=== PATIENT | female | born 2000 | race Two or more races ===

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

== ENCOUNTER 2019-02-17 04:08 | Emergency (ER) | payer OTHER ==
[2019-02-17 04:16] VITALS: BP 126/70
[2019-02-17] MEDS ORDERED: LIDOCAINE 1% INJ-PF (10 MG/ML) 30 ML SDV INJ ONE (04:49)
[2019-02-17] MEDS ORDERED: PROMETHAZINE HCL 25 MG TABLET PO ONE (04:49)
[2019-02-17] MEDS ORDERED: OXYCODONE-ACETAMINOPHEN 5-325 MG TABLET PO ONE (04:49)
--- NOTE | 2019-02-17 04:50 | ER Document Report ---
ED Skin Rash/Insect Bite/Abscs - General Chief Complaint: Rectal Abscess Stated Complaint: POSSIBLE ABSCESS Time Seen by Provider: 02/17/19 04:43 Notes: Patient is a 18-year-old female that comes to the emergency department for chief complaint of a swollen, red, tender area in the top of the left buttock area that appeared approximately 4 days ago and has worsened. She denies ever having this before. She denies any history of abscesses. She denies any fever/chills, nausea/vomiting. She denies any daily medications or past medical history. She is 1 month but she is not breast-feeding. TRAVEL OUTSIDE OF THE [place] IN LAST 30 DAYS: No - Related Data Allergies/Adverse Reactions: No Known Allergies Allergy (Verified 07/07/18 03:12) Home Medications: ibuprofen prn pain Past Medical History - General Information source: Patient - Social History Smoking Status: Never Smoker Frequency of alcohol use: None Drug Abuse: None Lives with: Family Family History: Reviewed & Not Pertinent Patient has suicidal ideation: No Patient has homicidal ideation: No Pulmonary Medical History: Reports: Hx Asthma Renal/ Medical History: Denies: Hx Peritoneal Dialysis Psychiatric Medical History: Reports: Hx Anxiety - Panic attacks - Immunizations Immunizations up to date: Yes Hx Diphtheria, Pertussis, Tetanus Vaccination: Yes Review of Systems - Review of Systems Constitutional: No symptoms reported EENT: No symptoms reported Cardiovascular: No symptoms reported Respiratory: No symptoms reported Gastrointestinal: No symptoms reported Genitourinary: No symptoms reported Female Genitourinary: No symptoms reported Musculoskeletal: No symptoms reported Skin: See HPI Hematologic/Lymphatic: No symptoms reported Neurological/Psychological: No symptoms reported Physical Exam - Vital signs Vitals: Temp Pulse Resp BP Pulse Ox 98.9 F 98 H 16 126/70 H 100 02/17/19 04:14 02/17/19 04:14 02/17/19 04:14 02/17/19 04:14 02/17/19 04:14 - Notes Notes: GENERAL: Alert, interacts well. No acute distress. HEAD: Normocephalic, atraumatic. EYES: Pupils equal, round, and reactive to light. Extraocular movements intact. ENT: Oral mucosa moist, tongue midline. Oropharynx unremarkable. Airway patent. LUNGS: Clear to auscultation bilaterally, no wheezes, rales, or rhonchi. No respiratory distress. HEART: Regular rate and rhythm. No murmur ABDOMEN: Soft, non-tender. Non-distended. EXTREMITIES: Moves all 4 extremities spontaneously. No edema, normal radial and dorsalis pedis pulses bilaterally. No cyanosis. BACK: no cervical, thoracic, lumbar midline tenderness. No saddle anesthesia, normal distal neurovascular exam. Moves all extremities in full range of motion. NEUROLOGICAL: Alert and oriented x3. Normal speech. Cranial nerves II through XII grossly intact. PSYCH: Normal affect, normal mood. SKIN: There is an indurated, fluctuant, oval-shaped area over the left upper buttock fold in the pilonidal area with some mild erythema over this area but no surrounding cellulitis. Area is very tender. Skin exam is completely unremarkable otherwise, no evidence of perianal abscess. Exam performed with Kiara CANDELARIA at bedside. Course - Re-evaluation Re-evalutation: Patient with obvious pilonidal cyst abscess. This was clean, drain, very large amount of purulent drainage was expressed, this was deep so after discussion with patient decision was made to pack it. Given specific instructions, antibiotics, return precautions which were discussed in detail. Patient states appreciation and agreement. Stable at time of discharge. - Vital Signs Vital signs: Temp Pulse Resp BP Pulse Ox 98.9 F 98 H 16 126/70 H 100 02/17/19 04:14 02/17/19 04:14 02/17/19 04:14 02/17/19 04:14 02/17/19 04:14 Procedures - Incision and Drainage Left upper gluteal cleft Type: Single Anesthetic type: 1% Lidocaine mL's of anesthetic: 8 Blade size: 11 I&D procedure: Shurclens applied, Iodoform packing placed Incision Method: Incision made by scalpel Amount/type of drainage: About 20 cc of purulent drainage expressed Discharge - Discharge Clinical Impression: Pilonidal abscess Condition: Stable Disposition: HOME, SELF-CARE Additional Instructions: You had a pilonidal cyst abscess, this was drained. The packing needs to be removed in 2 days (Tuesday morning). Keep area clean, clean with soap and water, keep absorbing dressing over the area. Take antibiotics as prescribed. Follow- up with primary care. This can recur once it has happened, if it does follow-up with the listed surgical clinic referral. Return if you worsen including increased pain, spreading redness, fever, or any other concerning or worsening symptoms. Prescriptions: Sulfamethoxazole/Trimethoprim [Bactrim Ds Tablet] 1 each PO BID #14 tablet
== END 2019-02-17 05:56 | disposition home or self-care (01) ==
LOC: ER 04:08
PROC: 0H98XZZ Drainage of Buttock Skin, External Approach (ICD-10-PCS; principal; 2019-02-17)
DX: O99.89 Other specified diseases and conditions complicating pregnancy, childbirth and the puerperium (principal); L05.01 Pilonidal cyst with abscess; J45.909 Unspecified asthma, uncomplicated
CPT/HCPCS: 99282; 10080; A6266; J3490

== ENCOUNTER → 2019-11-26 | Outpatient (CLI) | payer SELFPAY ==
--- NOTE | 2019-11-26 13:47 | RADIOLOGY REPORT (SQ) ---
EXAM DESCRIPTION: U/S OB 14+ TRNABD 1GES W/O DOP IMAGES COMPLETED DATE/TIME: 11/26/2019 1:36 pm REASON FOR STUDY: Z34.82 ENCOUNTER FOR SUPRVSN OF NORMAL , SECOND TRIMESTER Z34.82 ENCOUNT ER FOR SUPRVSN OF NORMAL , SECOND TRI COMPARISON: None. TECHNIQUE: Static and Dynamic grayscale imaging performed of gravid uterus using transabdominal appr oach. Additional selected color Doppler and spectral images recorded. All stored on PACS. LIMITATIONS: None. FINDINGS: FETUSES SEEN:1 EGA: 18 weeks 1 day. Calculated using BPD,FL,HC,AC documented on images. No discrepancy with clinica l dates. ROB: 04/27/2020 EFW: 235 grams PERCENTILE: Not applicable. Fetus less than or equal to 20 weeks gestation. LVP: 3.69 x 9.51 PLACENTA: Posterior location. GRADE: I PRESENTATION: Breech. ANATOMY: HEART RATE: 169 beats per minute. FOUR CHAMBER HEART: Visualized. THREE VESSEL CORD: Yes. CORD INSERTION: Visualized. KIDNEYS AND BLADDER: Visualized. Appear normal. STOMACH: Visualized. Appears normal. SPINE: Normal as visualized. BRAIN AND LATERAL VENTRICLES: Visualized. Appear normal. OTHER: No other significant finding. MATERNAL ADNEXA: Maternal ovaries not visualized. CERVICAL LENGTH: 3.0 cm. Closed. OTHER: No other significant finding. IMPRESSION: LIVING INTRAUTERINE . ESTIMATED GESTATIONAL AGE 18 WEEKS 1 DAY. NO VISUALIZED ANOMALIES. Trimester of : Second trimester - 13 weeks 1 day to 27 weeks 6 days. TECHNICAL DOCUMENTATION: JOB ID: [id number] 2010 [employer]- All Rights Reserved Reading location - IP/workstation name: [email or web address]
== END ==
LOC: RAD 12:50
PROVIDERS: ATTEND Nurse Practitioner Family
DX: Z34.82 Encounter for supervision of other normal pregnancy, second trimester (principal); Z3A.18 18 weeks gestation of pregnancy
CPT/HCPCS: 76805

== ENCOUNTER 2020-01-26 10:59 | Outpatient (CLI) | payer MEDICAID ==
[2020-01-26 11:44] LABS: APPEARANCE,URINE SLIGHTLY-CLOUDY; BILIRUBIN,URINE NEGATIVE (NEGATIVE); COLOR,URINE YELLOW; GLUCOSE, URINE NEGATIVE (NEGATIVE); KETONES,URINE NEGATIVE (NEGATIVE); LEUKOCYTE ESTERASE,URINE SMALL (NEGATIVE); NITRITE,URINE NEGATIVE (NEGATIVE); PROTEIN,URINE 100 mg/dL (NEGATIVE); URINE SPECIFIC GRAVITY 1.023
[2020-01-26 12:01] LABS: URINE AMPHETAMINES SCREEN NEGATIVE; URINE BARBITURATES SCREEN NEGATIVE; URINE BENZODIAZEPINES SCREEN NEGATIVE; URINE COCAINE SCREEN NEGATIVE; URINE MARIJUANA (THC) SCREEN NEGATIVE; URINE METHADONE SCREEN NEGATIVE; URINE PHENCYCLIDINE SCREEN NEGATIVE
[2020-01-26] MEDS ORDERED: RINGERS SOLUTION,LACTATED 1,000 ML IV PRN (12:02)
[2020-01-26] MEDS ORDERED: ACETAMINOPHEN 325 MG TABLET PO ONE (12:02)
[2020-01-26] MEDS ORDERED: ACETAMINOPHEN 325 MG TABLET ONE (12:08)
--- NOTE | 2020-01-26 13:27 | RADIOLOGY REPORT (SQ) ---
EXAM DESCRIPTION: CHEST SINGLE VIEW IMAGES COMPLETED DATE/TIME: 01/26/2020 1:03 pm REASON FOR STUDY: SOB with exertion, PUI tested yesterday COMPARISON: 03/21/2018. EXAM PARAMETERS: NUMBER OF VIEWS: One view. TECHNIQUE: Single frontal radiographic view of the chest acquired. RADIATION DOSE: NA LIMITATIONS: None. FINDINGS: LUNGS AND PLEURA: No opacities, masses or pneumothorax. No pleural effusion. MEDIASTINUM AND HILAR STRUCTURES: No masses. Contour normal. HEART AND VASCULAR STRUCTURES: Heart normal in size. Normal vasculature. BONES: No acute findings. HARDWARE: None in the chest. OTHER: No other significant finding. IMPRESSION: NO ACUTE RADIOGRAPHIC FINDING IN THE CHEST. TECHNICAL DOCUMENTATION: JOB ID: [id number] 2010 [employer]- All Rights Reserved Reading location - IP/workstation name: [email or web address]
--- NOTE | 2020-01-26 13:54 | RADIOLOGY REPORT (SQ) ---
EXAM DESCRIPTION: U/S OB LIMITED IMAGES COMPLETED DATE/TIME: 01/26/2020 1:38 pm REASON FOR STUDY: cervical length for back pain @ 26.6wks COMPARISON: None. TECHNIQUE: Limited transabdominal grayscale ultrasound for evaluation of specific requested obstetri lizy parameters. LIMITATIONS: None. FINDINGS: EGA: 27 week 5 day. ROB: 04/21/2020. EFW: 1110 g. PERCENTILE: 47%. CERVICAL LENGTH: 3.6 cm. Closed. MALOU: 9.5 cm. LVP 3.1 x 3.3 cm. FHR: 155 beats per minute. PRESENTATION: Cephalic. PLACENTA: Posterior ANATOMY: Not assessed OTHER: No other significant findings. IMPRESSION: LIMITED OBSTETRICAL ULTRASOUND WITH MEASURED PARAMETERS DELINEATED ABOVE. Trimester of : Second trimester - 13 weeks 1 day to 27 weeks 6 days. TECHNICAL DOCUMENTATION: JOB ID: [id number] 2010 [employer]- All Rights Reserved Reading location - IP/workstation name: [email or web address]
== END 2020-01-26 14:15 | disposition home or self-care (01) ==
LOC: LC 10:59
PROVIDERS: ATTEND Obstetrics & Gynecology
DX: O99.282 Endocrine, nutritional and metabolic diseases complicating pregnancy, second trimester (principal); E86.0 Dehydration; O99.891 Other specified diseases and conditions complicating pregnancy; M54.9 Dorsalgia, unspecified; Z3A.27 27 weeks gestation of pregnancy; Z87.891 Personal history of nicotine dependence
CPT/HCPCS: 59899; 81001; 80307; 71045; 76815; J3490

== ENCOUNTER 2020-04-04 20:35 | Outpatient (CLI) | payer MEDICAID ==
[2020-04-04 21:19] LABS: APPEARANCE,URINE CLOUDY; BILIRUBIN,URINE NEGATIVE (NEGATIVE); COLOR,URINE YELLOW; GLUCOSE, URINE NEGATIVE (NEGATIVE); KETONES,URINE NEGATIVE (NEGATIVE); LEUKOCYTE ESTERASE,URINE LARGE (NEGATIVE); NITRITE,URINE NEGATIVE (NEGATIVE); PROTEIN,URINE 30 mg/dL (NEGATIVE); URINE SPECIFIC GRAVITY 1.025; UROBILINOGEN,URINE NEGATIVE mg/dL (<2.0)
[2020-04-04 21:29] LABS: URINE AMPHETAMINES SCREEN NEGATIVE; URINE BARBITURATES SCREEN NEGATIVE; URINE BENZODIAZEPINES SCREEN NEGATIVE; URINE COCAINE SCREEN NEGATIVE; URINE MARIJUANA (THC) SCREEN NEGATIVE; URINE METHADONE SCREEN NEGATIVE; URINE PHENCYCLIDINE SCREEN NEGATIVE
--- NOTE | 2020-04-04 22:36 | Non Stress Test Report ---
Non Stress Test Datetime Report Generated by CPN: 04/04/2020 22:36 DEMOGRAPHIC EGA NST: 36.5 INDICATION Indication for Study (NST) Other: LC URINE RESULTS Urine Protein, NST: Positive Urine Ketones - NST: Negative Urine Glucose - NST: Negative Urine Blood - NST: Negative MONITORING Monitor Explained: Monitor Explained; Test Explained; Patient Verbalized Understanding Time on Monitor: 04/04/2020 20:56 Time off Monitor: 04/04/2020 21:29 NST Duration: 33 NST INTERVENTIONS NST Interventions: PO Hydration; Other NST Interventions Other: popsicle Physician Notified NST: Mccormick BABY A: [id number] BABY A Movement : Present Contraction Frequency : x1 FHR Baseline : 130 Accelerations : 15X15 Decelerations : None Variability : Moderate 6-25bpm NST Review: Meets Criteria for Reactive NST NST Review and Verified By : TODD WILDE Results: Reactive NST REPORT Report Trigger: Send Report
== END 2020-04-04 21:35 | disposition home or self-care (01) ==
LOC: LC 20:35
PROVIDERS: ATTEND Student in an Organized Health Care Education/Training Program
DX: O36.8130 Decreased fetal movements, third trimester, not applicable or unspecified (principal); O12.13 Gestational proteinuria, third trimester; Z3A.36 36 weeks gestation of pregnancy
CPT/HCPCS: 59025; 80307; 81001; 87086

== ENCOUNTER 2020-04-23 04:09 | Inpatient (IN) | payer MEDICAID ==
[2020-04-23 06:07] LABS: APPEARANCE,URINE SLIGHTLY-CLOUDY; BILIRUBIN,URINE NEGATIVE (NEGATIVE); COLOR,URINE AMBER; GLUCOSE, URINE NEGATIVE (NEGATIVE); KETONES,URINE NEGATIVE (NEGATIVE); LEUKOCYTE ESTERASE,URINE MODERATE (NEGATIVE); NITRITE,URINE NEGATIVE (NEGATIVE); PROTEIN,URINE 100 mg/dL (NEGATIVE); URINE SPECIFIC GRAVITY 1.031
[2020-04-23 06:27] LABS: URINE AMPHETAMINES SCREEN NEGATIVE; URINE BARBITURATES SCREEN NEGATIVE; URINE BENZODIAZEPINES SCREEN NEGATIVE; URINE COCAINE SCREEN NEGATIVE; URINE MARIJUANA (THC) SCREEN NEGATIVE; URINE METHADONE SCREEN NEGATIVE; URINE PHENCYCLIDINE SCREEN NEGATIVE
[2020-04-23 07:35] LABS: CHLAM PCR NOT DETECTED (NOT DETECT)
[2020-04-23] MEDS ORDERED: RINGERS SOLUTION,LACTATED 1,000 ML IV ONE (08:42)
[2020-04-23] MEDS ORDERED: RINGERS SOLUTION,LACTATED 1,000 ML IV PRN (08:42)
[2020-04-23] MEDS ORDERED: NALBUPHINE HCL INJ 10 MG/1 ML AMPULE INJ ONE (09:29)
[2020-04-23] MEDS ORDERED: MISOPROSTOL 0.2 MG TABLET ONE (09:30)
[2020-04-23] MEDS ORDERED: OXYTOCIN 10 UNIT/ML VIAL ONE (09:30)
[2020-04-23] MEDS ORDERED: NALBUPHINE HCL INJ 10 MG/1 ML AMPULE ONE (09:30)
[2020-04-23] MEDS ORDERED: OXYTOCIN/0.9 % SODIUM CHLORIDE 30 UNIT/500 ML RTUINJ ONE (09:31)
[2020-04-23] MEDS ORDERED: LIDOCAINE 1% INJ-PF (10 MG/ML) 30 ML SDV ONE (09:31)
[2020-04-23 09:43] LABS: ABSOLUTE LYMPHOCYTES (AUTO) 1.7 10^3/uL (0.5-4.7); ABSOLUTE MONOCYTES (AUTO) 0.5 10^3/uL (0.1-1.4); ABSOLUTE NEUT (AUTO) 8.3 10^3/uL (1.7-8.2); BASOPHILS % (AUTO) 0.4 % (0-2); HEMATOCRIT 29.9 % (36.0-47.0); HEMOGLOBIN 9.9 g/dL (12.0-15.5); LYMPHOCYTES % (AUTO) 16.1 % (13-45); MEAN CORPUSCULAR VOLUME 79 fl (80-97); MONOCYTES % (AUTO) 4.6 % (3-13); PLATELET COUNT 315 10^3/uL (150-450); RED BLOOD COUNT 3.79 10^6/uL (3.72-5.28); RED CELL DISTRIBUTION WIDTH 15.2 % (11.5-14.0); SEGMENTED NEUTROPHILS % (AUTO) 78.9 % (42-78); TOTAL CELLS COUNTED % (AUTO) 100 %; WHITE BLOOD COUNT 10.5 10^3/uL (4.0-10.5)
--- NOTE | 2020-04-23 12:38 | Admission Physical ---
Datetime Report Generated by CPN: 04/23/2020 12:38 CURRENT ADMISSION Chief Complaint: Uterine Contractions Indication for Induction: Not Applicable Admit Impression : Term, Intrauterine ; Active Labor Admit Plan: Admit to Unit Admit Plan- Other: ALLERGIES Medication Allergies: No Medication Allergies: No Known Allergies (04/23/2020) Latex: Unknown Food Allergies: none Environmental Allergies: none OBSTETRICAL HISTORY EDC: 04/27/2020 00:00 : 2 Para: 1 Term: 1 : 0 SAB: 0 IAB: 0 Ectopic: 0 Livin Cesareans: 0 VBACs: 0 Multiple Births: 0 Gestational Diabetes: No Rh Sensitization: No Incompetent Cervix: No CHARISSE: No Infertility: No ART Treatment: No Uterine Anomaly: No IUGR: No Hx Previous C/S: No Macrosomia: No Hx Loss/Stillborn: No PIH: No Hx : No Placenta Previa/Abruption: No Depression/PP Depression: Yes PTL/PROM: No Post Hemorrhage: No Current Procedures: Ultrasound Obstetrical History Comments: G1- dec 2018 - depression G2- current - anemic on iron, high weight gain SEE RECORDS Alcohol: No Marijuana : No Cocaine: No Other Illicit Drugs: No Cigarettes: Former Smoker. [id number] MEDICAL HISTORY Diabetes: No Blood Transfusion: No Pulmonary Disease (Asthma, TB): No Breast Disease: No Hypertension: No Rn Staffing Surgery: No Heart Disease: No Hosp/Surgery: Yes Autoimmune Disorder: No Anesthetic Complications: No Kidney Disease: Yes Abnormal Pap Smear: No Neuro/Epilepsy: No Psychiatric Disorders: No Other Medical Diseases: No Hepatitis/Liver Disease: No Significant Family History: No Varicosities/Phlebitis: No Trauma/Violence : No Thyroid Dysfunction: No Medical History Comments: childbirth, depression, INFECTIOUS HISTORY Gonorrhea: No Genital Herpes: No Chlamydia: Yes Tuberculosis: No Syphilis: Yes Hepatitis: No HIV/AIDS Exposure: No Rash or Viral Illness: No HPV: No Infectious History Comments: [facility] - 2019 +chlam 04/04/20, RAEANN pending in lab 04/23/2020 PHYSICAL EXAM General: Normal HEENT: Deferred Neurologic: Normal Thyroid: Deferred Heart: Normal Lungs: Normal Breast: Deferred Back: Normal Abdomen: Normal Genitourinary Exam: Normal Extremities: Normal DTRs: Deferred Pelvic Type: Adequate Vital Signs: Reviewed FETUS A EGA: 39.3 Monitoring: External US FHR- Baseline: 135 Variability: Moderate 6-25bpm Decelerations: None FHR Category: Category I Presentation: Vertex Admit Comment: admitted for active labor high wt gain 56lbs +CT treated 04/04/20 PLANS FOR LABOR AND DELIVERY Labor and Delivery: None Pain Management: Medications Other Pain Management Plans: IV pain meds Feeding Preference: Breast Benefit of Breast Feed Discussed: Yes Circumcision: N/A INFORMED CONSENT Assignment: Pito Pabon MD Signature: with User ID: Perlita : with User ID: [email or web address]
[2020-04-23] MEDS ORDERED: IBUPROFEN 800 MG TABLET ONE (13:14)
[2020-04-23] MEDS ORDERED: BENZOCAINE/MENTHOL AEROSOL SPRAY 56 ML TOP PRN (13:25)
[2020-04-23] MEDS ORDERED: FAMOTIDINE 20 MG TABLET PO PRN (13:25)
[2020-04-23] MEDS ORDERED: DIBUCAINE 1% OINTMENT 28 GM TP PRN (13:25)
[2020-04-23] MEDS ORDERED: MAG HYDROX/AL HYDROX/SIMETH SUSP 30 ML UDCUP PO PRN (13:25)
[2020-04-23] MEDS ORDERED: OXYTOCIN/0.9 % SODIUM CHLORIDE 30 UNIT/500 ML RTUINJ IV PRN (13:25)
[2020-04-23] MEDS ORDERED: ACETAMINOPHEN 650 MG SUPP.RECT PR PRN (13:25)
[2020-04-23] MEDS ORDERED: DIPHENHYDRAMINE HCL 25 MG CAPSULE PO PRN (13:25)
[2020-04-23] MEDS ORDERED: PSEUDOEPHEDRINE HCL 30 MG TABLET PO PRN (13:25)
[2020-04-23] MEDS ORDERED: ACETAMINOPHEN 325 MG TABLET PO PRN (13:25)
[2020-04-23] MEDS ORDERED: DIPH/PERTUSS(ACELL)/TETANUS VAC/PF 0.5 ML SYR (>=10YO) IM PRN (13:25)
[2020-04-23] MEDS ORDERED: GLYCERIN/WITCH HAZEL LEAF 1 EACH MED..WIPE TP PRN (13:25)
[2020-04-23] MEDS ORDERED: ZOLPIDEM TARTRATE 5 MG TABLET PO PRN (13:25)
[2020-04-23] MEDS ORDERED: MEASLES,MUMPS&RUBELLA VACC/PF 0.5 ML VIAL SUBCUT PRN (13:25)
[2020-04-23] MEDS ORDERED: MAGNESIUM HYDROXIDE SUSP 30 ML UDCUP PO PRN (13:25)
[2020-04-23] MEDS ORDERED: VARICELLA VACC/PF (1350 UNIT/0.5 ML) 0.5 ML VIAL SUBCUT PRN (13:25)
[2020-04-23] MEDS: IBUPROFEN 800 MG TABLET PO SCH ×2 (13:26→21:30)
--- NOTE | 2020-04-23 15:31 | Birth Certificate Data ---
Cert Data Datetime Report Generated by LEE: 04/23/2020 15:31 CERTIFICATE DATA Delivery Provider: Kiara Ahmadi CNM (01/26/2020 11:03:Kiara Ahmadi CNM) 47a. Care: Yes (01/26/2020 11:03:Heriberto Torres RN) 47b. Date of First Visit: 11/14/2019 00:00 (01/26/2020 11:03:Heriberto Torres RN) 47c. Date of Last Visit: 04/22/2020 00:00 (01/26/2020 11:03:Heriberto Torres RN) 47d. Number of Visits: 9 (01/26/2020 11:03:Heriberto Torres RN) 48a. Number of Prev Live Births: 1 (01/26/2020 11:03:Ysabel Marks RN) 48b. Now Livin (01/26/2020 11:03:Ysabel Marks RN) 48c. Live Births Now : 0 (01/26/2020 11:03:QS system process) 48d. Date of Last Live : 01/20/2020 00:00 (01/26/2020 11:03:Heriberto Torres RN) 48e. Losses: 0 (01/26/2020 11:03:Heriberto Torres RN) RISK FACTORS IN THIS 49a. Diabetes: No (01/26/2020 11:03:Ysabel Marks RN) 49b. Hypertension: No (01/26/2020 11:03:Ysabel Marks RN) 49c. Previous Births: 0 (01/26/2020 11:03:Heriberto Torres RN) 49d. Stillborns: No (01/26/2020 11:03:Ysabel Marks RN) 49d. IUGR: No (01/26/2020 11:03:Ysabel Marks RN) 49e. Infertility Treatment: No (01/26/2020 11:03:Ysabel Marks RN) 49f. Previous Cesareans: 0 (01/26/2020 11:03:Ysabel Marks RN) Mother's Height 50b. Height Inches: 62 (04/23/2020 15:03:QS system process) Mother's Weight 51a. Pre- Weight (lbs): 130 (01/26/2020 11:03:Ysabel Marks RN) 51b. Weight at Delivery (lbs): 185 (04/23/2020 15:03:QS system process) 52. Dt Last Normal Menses Began: 07/16/2019 00:00 (01/26/2020 11:03:Heriberto Torres RN) Infections Present/Treated 53a. Gonorrhea: No (01/26/2020 11:03:Ysabel Marks RN) Results this Hospital Visit : Negative (01/26/2020 11:03:Jessica Martinez RN) 53b. Syphilis: Yes (01/26/2020 11:03:Ysabel Marks RN) 53c. Chlamydia: Yes (01/26/2020 11:03:Heriberto Torres RN) Results this Hospital Visit: Negative (01/26/2020 11:03:Oneyda Montero RN) 53d. Hepatitis B: No (01/26/2020 11:03:Ysabel Marks RN) Results this Hospital Visit: Negative (01/26/2020 11:03:Jessica Martinez RN) 53e. Hepatitis C: Negative (01/26/2020 11:03:Jessica Martinez RN) 53h. Mother Tested for HBsAG: Yes (01/26/2020 11:03:Jessica Martinez RN) 53i. Date Tested: 11/19/2019 00:00 (01/26/2020 11:03:Jessica Martinez RN) 53j. Test Result: Negative (01/26/2020 11:03:Jessica Martinez RN) Obstetric Procedures 54a, b, c. Obstetric Procedures: Ultrasound (01/26/2020 11:03:Ysabel Marks RN) Cigarette Smoking Cigarette Smoking: Former Smoker. [id number] (01/26/2020 11:03:Ysabel Marks RN) 55a. Packs: 1 (01/26/2020 11:03:Ysabel Marks RN) 55b. 1st Trimester of Preg- Ci (01/26/2020 11:03:Ysabel Marks RN) 55c. 2nd Trimester of Preg- Ci (01/26/2020 11:03:Ysabel Marks RN) 55c. Packs: 0 (01/26/2020 11:03:Heriberto Torres RN) 55d. 3rd Trimester of Preg- Ci (01/26/2020 11:03:Ysabel Marks RN) 55d. Packs: 0 (01/26/2020 11:03:Heriberto Torres RN) Onset of Labor 56a. PROM >12 Hrs: 2.78 (01/26/2020 11:03:QS system process) 56b. Precipitous Labor <3 Hrs: 5 (01/26/2020 11:03:QS system process) 56c. Prolonged Labor > 20 Hrs: 5 (01/26/2020 11:03:QS system process) 57a. Induction of Labor: N/A (01/26/2020 11:03:Oneyda Montero RN) 57c. Non-Vertex Presentation A: Vertex (01/26/2020 11:03:Oneyda Montero RN) 57d. Steroids - Lung Mat: None (01/26/2020 11:03:Oneyda Montero RN) 57d. Steroids - Lung Mat: Not Applicable (01/26/2020 11:03:Oneyda Montero RN) 57f. Mat Ch[place] or Temp >100.4: 98.9 (01/26/2020 11:03:Oneyda Montero RN) 57g. Moderate/Heavy Meconium: Clear (04/23/2020 10:03:Oneyda Montero RN) 57i. Epidural/Spinal Anesthesia: None (01/26/2020 11:03:Oneyda Montero RN) Method of Delivery 58a. Forceps - Unsuccessful A: N/A (01/26/2020 11:03:Oneyda Montero RN) 58b. Vacuum - Unsuccessful A: N/A (01/26/2020 11:03:Oneyda Montero RN) 58c. Presentation at 58c. Presentation at - A : Vertex (01/26/2020 11:03:Oneyda Summercharissameliza ) 58c. Presentation at - A : N/A (01/26/2020 11:03:[facility] ) 58c. Presentation at - A : Cephalic (01/26/2020 11:03:[facility] ) Final Route and Method of Del 58d. Baby A Route/Delivery: Vaginal (04/23/2020 12:50:Oneyda TODD Montero) 58e. Trial of Labor Attempted: No (01/26/2020 11:03:Oneyda TODD Montero) 58e. Trial of Labor Attempted A: N/A (01/26/2020 11:03:[facility] ) 58e. Trial of Labor Attempted B: N/A (01/26/2020 11:03:[facility] ) Maternal Morbidity 59b. 3rd or 4th Degree Lacs: Vaginal (01/26/2020 11:03:Oneyda Feuston, RN) Birthweight Baby A: 3557 (01/26/2020 11:03:Oneyda Feuston, RN) 60a. Pounds : 7 (01/26/2020 11:03:QS system process) 60b. Ounces: 13 (01/26/2020 11:03:QS system process) 61. GA at Delivery Baby A: 39.3 (01/26/2020 11:03:Oneyda Feuston, RN) : Full Term- 39- 40.6 Weeks (01/26/2020 11:03:QS system process) 62a. 5 Minute Baby A: 9 (01/26/2020 11:03:QS system process)
--- NOTE | 2020-04-23 15:31 | Delivery Summary ---
Del Sum A-C Datetime Report Generated by CPN: 04/23/2020 15:31 DELIVERY PERSONNEL DELIVERY PERSONNEL: [id number] Delivery Doctor:: Kiara Ahmadi CNM Labor and Delivery Nurse:: Oneyda Montero RN Nursery Nurse:: Ivet Tracy RN Table Lever Operator/BURGLAR ALARM MECHANIC: [facility] MATERNAL INFORMATION Delivery Anesthesia: None Medications After Delivery: Pitocin 30 Units in 500ml NS/D5W Meds After Delivery Comment: Lidocaine for repair Delivery QBL: 147 Maternal Complications: None Provider Comments: SVDVF with turtle sign, attempted delivery of anterior shoulder with downward traction, and then attempted del of post shoulder. Legs extended and then Indira position re-assumed, attempted downward traction again and had successful delivery of ant shoulder. Infant vigorous, and crying after stimulation. Cord clamped after 2 min and cut per FOB, 3VC noted. Repair of vaginal laceration d/t bleeding site then delivery of placenta spont via almeida. Fundus firmed immediately. Hemostasis acheived. Mother and stable. LABOR SUMMARY EDC: 04/27/2020 00:00 No. Babies in Womb: 1 Attempted: No Labor Anesthesia: None LABOR INFORMATION Reason for Induction: Not Applicable Onset of Labor: 04/23/2020 07:32 Complete Dilatation: 04/23/2020 12:44 Oxytocin: N/A Group B Beta Strep: negative Antibiotics # of Doses: n/a Name of Antibiotic Given: n/a Steroids Given: None Reason Steroids Not Administered: Not Applicable MEMBRANES Membranes Rupture Method: Artificial Rupture of Membranes: 04/23/2020 10:03 Length of Rupture (hr): 2.78 Amniotic Fluid Color: Clear Amniotic Fluid Amount: Small Amniotic Fluid Odor: Normal STAGES OF LABOR Stage 1 hr: 5 Stage 1 min: 12 Stage 2 hr: 0 Stage 2 min: 6 Stage 3 hr: 0 Stage 3 min: 10 Total Time in Labor hr: 5 Total Time in Labor min: 28 VAGINAL DELIVERY Episiotomy: None Laceration #1: Vaginal Laceration Extension #1: Second Degree Laceration Repair Note: lidocaine and 2.0 Chromic used to repair vaginal lac for hemostasis Sponge Count Correct: Yes Sharps Count Correct: Yes BABY A INFORMATION Delivery Date/Time: 04/23/2020 12:50 Method of Delivery: Vaginal Nurse Controlled Delivery: No Born in Route : No : N/A Forceps: N/A Vacuum Extraction: N/A Shoulder Dystocia : Yes SHOULDER DYSTOCIA BABY A Delivery of Head: 04/23/2020 12:49 Time Head to Delivery : 1.0 1st Intervention to Resolve: Gentle Attempt at Traction, Assisted by Maternal Expulsive Efforts 2nd Intervention to Resolve: McRobert's Maneuver Verify NO Fundal Pressure: No Fundal Pressure Applied Arm Under Symphisis at Del: Left PRESENTATION/POSITION BABY A Presentation: Cephalic Cephalic Presentation: Vertex Vertex Position: Right Occipital Anterior Breech Presentation: N/A PLACENTA INFORMATION BABY A Placenta Delivery Time : 04/23/2020 13:00 Placenta Method of Delivery: Spontaneous Placenta Status: Delivered SCORES BABY A Heart Rate 1 min: >100 bpm Resp Effort 1 min: Good Cry Reflex Irritability 1 min: Cough or Sneeze or Pulls Away Muscle Tone 1 min: Active Motion Color 1 min: Blue/Pale Resuscitation Effort 1 min: Tactile Stimulation SCORE 1 MIN: 8 Heart Rate 5 min: >100 bpm Resp Effort 5 min: Good Cry Reflex Irritability 5 min: Cough or Sneeze or Pulls Away Muscle Tone 5 min: Active Motion Color 5 min: Body [place], Extremities Blue Resuscitation Effort 5 min: Tactile Stimulation SCORE 5 MIN: 9 INFORMATION BABY A Gestational Age at Delivery: 39.3 Gestational Status: Full Term- 39- 40.6 Weeks Outcome : Liveborn Infant Condition : Stable Sex: Female IDENTIFICATION BABY A Verification Date/Time: 04/23/2020 13:30 ID Band Number: [id number] Mother's Name Verified: Yes Infant RN Verifying Infant: Sherrie, RN Additional Verifying Personnel: SJoanna Sinclair, RN WEIGHT/LENGTH BABY A Birthweight (gm): 3557 Weight (lb): 7 Infant Weight (oz): 13 Infant Length (in): 20.00 Length (cm): 50.80 CORD INFORMATION BABY A No. Cord Vessels: 3 Nuchal Cord : N/A Cord Blood Taken: Yes-For Storage (Mom's Blood type +) Infant Suction: Mouth; Nose ASSESSMENT BABY A Infant Complications: None Physical Findings at Delivery: Within Normal Limits Respirations: Appears Normal Skin to Skin: Yes Skin to Skin Time (min): 60 BABY B INFORMATION : N/A SIGNATURES Assignment: Pito Pabon MD Signature: with User ID: [email or web address] : with User ID: [email or web address] : I was personally available for consultation and serving as supervising physician for the MLP.
[2020-04-23] MEDS: DOCUSATE SODIUM 100 MG CAPSULE PO SCH (17:19)
[2020-04-23] MEDS: FERROUS SULFATE 325 MG TABLET PO SCH (17:19)
[2020-04-24] MEDS: IBUPROFEN 800 MG TABLET PO SCH ×2 (05:26→14:20)
[2020-04-24 07:29] LABS: HEMATOCRIT 25.6 % (36.0-47.0); HEMOGLOBIN 8.5 g/dL (12.0-15.5); MEAN CORPUSCULAR HGB CONC 33.1 g/dL (32.0-36.0); MEAN CORPUSCULAR VOLUME 79 fl (80-97); PLATELET COUNT 252 10^3/uL (150-450); RED BLOOD COUNT 3.26 10^6/uL (3.72-5.28); RED CELL DISTRIBUTION WIDTH 15.6 % (11.5-14.0); WHITE BLOOD COUNT 11.9 10^3/uL (4.0-10.5)
[2020-04-24 07:37] VITALS: BP 108/60
[2020-04-24] MEDS: FERROUS SULFATE 325 MG TABLET PO SCH ×2 (09:45→17:26)
[2020-04-24] MEDS: DOCUSATE SODIUM 100 MG CAPSULE PO SCH ×2 (09:45→17:26)
[2020-04-24] MEDS ORDERED: PRENATAL VITAMIN W DHA CAPSULE PO SCH (10:00)
[2020-04-24] MEDS ORDERED: SENNOSIDES/DOCUSATE 8.6-50 MG 1 EACH TABLET PO SCH (10:00)
--- NOTE | 2020-04-24 10:01 | PDOC PROGRESS REPORT ---
Subjective-OB Progress Note for:: 04/24/20 Subjective: Pt doing well, no concerns. She reports light bleeding, reg diet and voiding w/o difficulty. Would like to go home today. Physical Exam (OB) Vital Signs: Temp Pulse Resp BP Pulse Ox 97.9 F 67 16 108/60 98 04/24/20 08:56 04/24/20 07:35 04/24/20 07:35 04/24/20 07:35 04/24/20 07:35 Intake & Output 04/23/20 04/24/20 04/25/20 06:59 06:59 06:59 Weight 83.9 kg - Maternal Morbidity 59. Maternal Morbidity (serious complications experinced by the mother associated with labor and delivery: None of the above - Lochia Lochia Amount: Scant < 10 ml Lochia Color: Rubra/Red - Abdomen Description: Soft Hernia Present: No Fundal Description: Firm, Midline Fundal Height: u/u - u/2 Objective-Diagnostic Laboratory: 04/24/20 06:44 04/23/20 04/24/20 09:16 06:44 WBC 11.9 H RBC 3.26 L Hgb 8.5 L Hct 25.6 L MCV 79 L MCH 26.0 L MCHC 33.1 RDW 15.6 H Plt Count 252 Blood Type A POSITIVE Antibody Screen NEGATIVE Assessment and Plan(PN) - Assessment and Plan (1) Active labor at term Is this a current diagnosis for this admission?: Yes (2) Obstetrical laceration, second degree Is this a current diagnosis for this admission?: Yes (3) Vaginal delivery Is this a current diagnosis for this admission?: Yes - Time Spent with Patient Time with patient: Less than 15 minutes Medications reviewed and adjusted accordingly: Yes - Disposition Anticipated Discharge Disposition: Home, Self Care Anticipated Discharge Timeframe: within 24 hours
--- NOTE | 2020-04-24 11:26 | PDOC DISCHARGE SUMMARY ---
Impression - Admit/DC Date/PCP Admission Date/Primary Care Provider: 04/23/20 08:45 ASIF THURMAN MD Discharge Date: 04/24/20 - Discharge Diagnosis (1) Active labor at term Is this a current diagnosis for this admission?: Yes (2) Obstetrical laceration, second degree Is this a current diagnosis for this admission?: Yes (3) Vaginal delivery Is this a current diagnosis for this admission?: Yes - Additional Information Resuscitation Status: Full Code Discharge Diet: Regular Discharge Activity: Balance Activity w/Rest, Pelvic Rest Referrals: ASIF THURMAN MD [Primary Care Provider] - Prescriptions: Ibuprofen [Motrin 800 mg Tablet] 800 mg PO Q8HP PRN #60 tablet PRN Reason: Home Medications: Vits96/Iron Fum/Folic [ Tablet] 1 each PO DAILY 01/26/20 Iron 325 mg PO DAILY 04/04/20 Ibuprofen [Motrin 800 mg Tablet] 800 mg PO Q8HP PRN #60 tablet 04/24/20 HPI Gestational Age: 39.3 Reason(s) for Admission: Onset of Labor Procedures: NST Intrapartum Procedure(s): Spontaneous Vaginal Delivery Complication(s): Laceration-Vaginal Laceration-Degree: 2nd Hospital Course 59. Maternal Morbidity (serious complications experinced by the mother associated with labor and delivery: None of the above Results Laboratory Results: WBC 11.9 10^3/uL (4.0-10.5) H 04/24/20 06:44 RBC 3.26 10^6/uL (3.72-5.28) L 04/24/20 06:44 Hgb 8.5 g/dL (12.0-15.5) L 04/24/20 06:44 Hct 25.6 % (36.0-47.0) L 04/24/20 06:44 MCV 79 fl (80-97) L 04/24/20 06:44 MCH 26.0 pg (27.0-33.4) L 04/24/20 06:44 MCHC 33.1 g/dL (32.0-36.0) 04/24/20 06:44 RDW 15.6 % (11.5-14.0) H 04/24/20 06:44 Plt Count 252 10^3/uL (150-450) 04/24/20 06:44 Lymph % (Auto) 16.1 % (13-45) 04/23/20 09:16 [place] % (Auto) 4.6 % (3-13) 04/23/20 09:16 Eos % (Auto) 0.0 % (0-6) 04/23/20 09:16 Baso % (Auto) 0.4 % (0-2) 04/23/20 09:16 Absolute Neuts (auto) 8.3 10^3/uL (1.7-8.2) H 04/23/20 09:16 Absolute Lymphs (auto) 1.7 10^3/uL (0.5-4.7) 04/23/20 09:16 Absolute Monos (auto) 0.5 10^3/uL (0.1-1.4) 04/23/20 09:16 Absolute Eos (auto) 0.0 10^3/uL (0.0-0.6) 04/23/20 09:16 Absolute Basos (auto) 0.0 10^3/uL (0.0-0.2) 04/23/20 09:16 Seg Neutrophils % 78.9 % (42-78) H 04/23/20 09:16 Urine Color SOY 04/23/20 04:25 Urine Appearance SLIGHTLY-CLOUDY 04/23/20 04:25 Urine pH 6.0 (5.0-9.0) 04/23/20 04:25 Ur Specific [place] 1.031 04/23/20 04:25 Urine Protein 100 mg/dL (NEGATIVE) H 04/23/20 04:25 Urine Glucose (UA) NEGATIVE mg/dL (NEGATIVE) 04/23/20 04:25 Urine Ketones NEGATIVE mg/dL (NEGATIVE) 04/23/20 04:25 Urine Blood NEGATIVE (NEGATIVE) 04/23/20 04:25 Urine Nitrite NEGATIVE (NEGATIVE) 04/23/20 04:25 Urine Bilirubin NEGATIVE (NEGATIVE) 04/23/20 04:25 Urine Urobilinogen 2.0 mg/dL (<2.0) H 04/23/20 04:25 Ur Leukocyte Esterase MODERATE (NEGATIVE) H 04/23/20 04:25 Urine Ascorbic Acid NEGATIVE (NEGATIVE) 04/23/20 04:25 Urine Opiates Screen NEGATIVE 04/23/20 04:25 Urine Methadone Screen NEGATIVE 04/23/20 04:25 Ur Barbiturates Screen NEGATIVE 04/23/20 04:25 Ur Phencyclidine Scrn NEGATIVE 04/23/20 04:25 Ur Amphetamines Screen NEGATIVE 04/23/20 04:25 U Benzodiazepines Scrn NEGATIVE 04/23/20 04:25 Urine Cocaine Screen NEGATIVE 04/23/20 04:25 U Marijuana (THC) Screen NEGATIVE 04/23/20 04:25 RPR NONREACTIVE (NONREACTIVE) 04/23/20 09:16 Chlamydia DNA (PCR) NOT DETECTED (NOT DETECT) 04/23/20 04:25 N.gonorrhoeae DNA (PCR) NOT DETECTED (NOT DETECT) 04/23/20 04:25 Blood Type A POSITIVE 04/23/20 09:16 Antibody Screen NEGATIVE 04/23/20 09:16 Plan Plan of Treatment: f/u at [facility] in 4 wks Time Spent: Less than 30 Minutes
== END 2020-04-24 18:59 | disposition home or self-care (01) | DRG 807 ==
LOC: LC 04:09 → LR 08:45 → 2S 15:03
PROVIDERS: ADMIT Obstetrics & Gynecology Gynecology; ATTEND Obstetrics & Gynecology Gynecology
PROC: 10E0XZZ Delivery of Products of Conception, External Approach (ICD-10-PCS; principal; 2020-04-23)
PROC: 0KQM0ZZ Repair Perineum Muscle, Open Approach (ICD-10-PCS; 2020-04-23)
PROC: 10907ZC Drainage of Amniotic Fluid, Therapeutic from Products of Conception, Via Natural or Artificial Opening (ICD-10-PCS; 2020-04-23)
DX: O99.02 Anemia complicating childbirth (principal); Z37.0 Single live birth; O70.1 Second degree perineal laceration during delivery; D64.9 Anemia, unspecified; O26.03 Excessive weight gain in pregnancy, third trimester; Z20.828 Contact with and (suspected) exposure to other viral communicable diseases; Z87.891 Personal history of nicotine dependence; Z3A.39 39 weeks gestation of pregnancy
CPT/HCPCS: 36415; 80307; 81005; 85025; 85027; 86592; 86850; 86900; 86901; 87491; 87591; 94760; J2300; J2590; J3490